=== PATIENT | female | born 1975 | race Hispanic/Latino ===

== ENCOUNTER 2016-05-14 01:40 | Emergency (ER) | payer OTHER ==
[~2016-05-14] VITALS: Ht 170.2 cm; Wt 77.1 kg
[~2016-05-14 01:40] MED LIST: ALBUTEROL 3 ML3 ML INH; ALBUTEROL SULFAT3 M1 INH; ATROVENT H0.017 MG/A PO; AUGMENTIN 875 M1 TAB PO; CEPHALEXIN500 MG PO; DEXILANT60 MG PO; FERROUS SULFAT325 M3 PO; FLU VACCINE 0.0.5 ML IM; LEVSIN0.125 M1 PO; LORAZEPAM1 MG PO; MECLIZINE HCL25 MG PO; MONTELUKAST SOD10 M1 PO; MOTRIN800 MG PO; MULTIVITAMIN1 TAB PO; NEXIUM20 MG PO; PREDNISONE50 MG PO; PROAIR HFA0.09 MG/Ac INH; PROAIR HFA0.09 MG/Ac PO; PROBIOTIC FORMU1 CAP PO; RANITIDINE HYD150 MG PO; ROBITUSSIN W/CO10 ML PO; SERTRALINE HCL50 MG PO; SYNTHROID0.025 MG PO; VALIUM2 MG PO; ZOFRAN ODT4 M1 SL
--- NOTE | 2016-05-14 01:46 | ED GENERAL ADULT ---
History of Present Illness General Chief Complaint: Dyspnea (COPD, CHF, Other) Stated Complaint: BIBA, DIFF BREATHING Source: patient, EMS Exam Limitations: no limitations Vital Signs & Intake/Output Vital Signs & Intake/Output Vital Signs Date Time Temp Pulse Resp B/P Pulse O2 O2 Flow FiO2 Ox Delivery Rate 05/14 0650 97.6 82 18 128/64 97 Room Air 05/14 0449 97.4 76 20 125/64 97 Room Air 05/14 0318 99 Room Air 05/14 0159 98.0 84 18 123/64 99 Room Air Allergies Coded Allergies: Sulfa (Sulfonamide Antibiotics) (Severe, HIVES 12/30/15) fluconazole (Severe, BODY SWELLING, RASH 12/30/15) Reconcile Medications Albuterol Sulfate 3 ML NEB 3 ML INH PRN ASTHMA (Reported) Albuterol Sulfate (Proair Hfa) 0.09 MG/Actuation CHENTE 2 PUFF INH PRN ASTHMA ( Reported) Ferrous Sulfate 325 MG (65 MG IRON) TABLET 1 TAB PO DAILY SUPPLEMENT ( Reported) Hyoscyamine (Levsin) 0.125 MG TABLET 1 TAB PO Q4 PRN ABDOMINAL SPASMS Lactobacillus Acidophilus (Probiotic Formula Capsule) 10B CELL CAPSULE 1 CAP PO DAILY SUPPLEMENT (Reported) Levothyroxine (Synthroid) 0.025 MG TAB 0.025 MG PO DAILY AC THYROID (Reported ) Lorazepam 1 MG TAB 0.5 TAB PO PRN ANXIETY (Reported) Meclizine HCl 25 MG TABLET 1 TAB PO TIDPRN PRN VERTIGO Montelukast Sodium 10 MG TABLET 1 TAB PO DAILY ALLERGIES (Reported) Multivitamin (Multiple Vitamins) 1 EACH TABLET 1 TAB PO DAILY SUPPLEMENT ( Reported) Ondansetron (Zofran Odt) 4 MG TAB.RAPDIS 1 TAB SL TID PRN NAUSEA Ranitidine Hydrochloride 150 MG TAB 1 TAB PO PRN GI (Reported) Sertraline HCl 50 MG TABLET 0.5 TAB PO DAILY ANXIETY (Reported) Triage Nurses Notes Reviewed? yes Onset: Abrupt Duration: hour(s): Timing: recent history HPI: 05/14/16 1:53 AM 41-year-old female presents to the emergency department status post chest pain and difficulty breathing and elevated heart rate. According to the patient she has a history of fast heart rate. She was told by the product test specialist that this has to do when she goes from lying to sitting suddenly. She also recently had disc surgery. The disc was replaced through an incision in her abdomen, this was approximately 6 weeks ago. She denies any other complaints. She says that the symptoms woke her up from sleep with severe chest pain difficulty breathing. Now in the emergency Department the symptoms have resolved. She said her heart rate was greater than 200. The onset of the symptoms were abrupt, the duration was just this evening, the severity was significant as her symptoms required to come to the emergency department for care. Past History Travel History Traveled to [place] past 21 day No Medical History Any Pertinent Medical History? see below for history Neurological: NONE, vertigo EENT: NONE Cardiovascular: NONE Respiratory: asthma Gastrointestinal: hIATAL HERNIA WITH SUBSEQUENT ACID REFLUX Hepatic: NONE Renal: NONE Musculoskeletal: chronic back pain Psychiatric: anxiety Endocrine: Liz's thyroiditis, hypothyroidism Blood Disorders: NONE Cancer(s): NONE [employer]/Reproductive: NONE Influenza Vaccine: 11/26/14 Surgical History Surgical History: non-contributory Psychosocial History Who do you live with Patient/Self Services at Home None What is your primary language Cambodian Family History Hx Contributory? No Review of Systems Review of Systems Constitutional: Denies: fever. EENTM: Denies: visual changes. Respiratory: Reports: short of breath. Cardiovascular: Reports: chest pain, palpitations. GI: Denies: abdominal pain. Genitourinary: Reports: no symptoms. Musculoskeletal: Reports: no symptoms. Skin: Reports: no symptoms. Neurological/Psychological: Reports: no symptoms. Hematologic/Endocrine: Reports: no symptoms. Immunologic/Allergic: Reports: no symptoms. Physical Exam Physical Exam General Appearance: well developed/nourished, alert, awake, anxious, mild distress Head: atraumatic, normal appearance Eyes: Bilateral: normal appearance, PERRL, EOMI. Ears, Nose, Throat: normal pharynx, normal ENT inspection Neck: normal inspection, supple, full range of motion Respiratory: normal breath sounds, chest non-tender, no respiratory distress Cardiovascular: regular rate/rhythm Peripheral Pulses: 4+ radial (R), 4+ radial (L) Gastrointestinal: soft, non-tender, clean abdominal cicatrix in the midline Back: normal inspection, normal range of motion Extremities: normal range of motion, no edema Neurologic/Psych: no motor/sensory deficits, awake, alert, oriented x 3 Skin: intact, normal color, warm/dry Core Measures ACS in differential dx? Yes CVA/TIA Diagnosis: No Severe Sepsis Present: No Septic Shock Present: No Progress Differential Diagnoses I considered the following diagnoses in my evaluation of the patient: [ SVT, pulmonary embolism, ventricular tachycardia, thyroid storm. I considered acute coronary syndrome - the pain occurred at rest, sharp, to completely resolve, she had a sudden elevation in her heart rate with the onset of the symptoms. she was referred to follow-up with the product test specialist for echocardiogram and Holter.] Plan of Care: Orders Procedure Date/time Status EKG 05/14 358 Active TOTAL TRIODOTHYROXINE 05/15 251 Complete HUMAN BETA HCG SCREEN 05/15 151 Complete TSH REFLEX 05/14 150 Complete FREE T4 05/14 150 Complete D-DIMER 05/14 150 Complete COMPREHENSIVE METABOLIC PANEL 05/14 150 Complete CBC WITHOUT DIFFERENTIAL 05/14 150 Complete Laboratory Tests 05/14/16251: Total Beta HCG NEGATIVE 05/14/16251: Anion Gap 7, Estimated GFR > 60, BUN/Creatinine Ratio 12.9, Glucose 104 H, Calcium 9.0, Total Bilirubin 0.2, AST 20, ALT 33, Alkaline Phosphatase 83, Total Protein 6.8, Albumin 3.8, Globulin 3.0, Albumin/Globulin Ratio 1.3, Free T4 1.34 , Total T3 1.38, TSH &T3 &Free T4 Intrp 3.360, D-Dimer 303 H, CBC w Diff NO MAN DIFF REQ, RBC 4.22, MCV 87.4, MCH 28.6, RDW 13.8, MPV 9.5, Gran % 63.7, Lymphocytes % 23.2, Monocytes % 7.2, Eosinophils % 5.3 H, Basophils % 0.6, Absolute Granulocytes 4.0, Absolute Lymphocytes 1.5, Absolute Monocytes 0.4, Absolute Eosinophils 0.3, Absolute Basophils 0, PUBS MCHC 32.7 L Initial ED EKG: NSR Prior EKG: unchanged Departure Departure Disposition: HOME OR SELF CARE Condition: Stable Clinical Impression Primary Impression: Palpitations Referrals: DELON HAYDEN MD (PCP/Family) Departure Forms: Customer Survey General Discharge Information Comments Chest x-ray results shown below PATIENT: ALLYSSA RUIZ PRESENT AGE: 41 PATIENT ACCOUNT NO: [id number] : 75 LOCATION: [facility] ORDERING PHYSICIAN: TOMMY PETERS DO SERVICE DATE: 05/14/161 EXAM TYPE: CAT - CTA CHEST-PULMONARY EMBOLISM EXAMINATION: CT ANGIOGRAM OF THE CHEST WITH AND WITHOUT CONTRAST (CT PULMONARY ANGIOGRAM FOR PE) CLINICAL INFORMATION: CP/SOB/ELEVATED DIMER COMPARISON: None TECHNIQUE: Prior to contrast administration, noncontrast localization images were obtained. Subsequently, multidetector volumetric imaging was performed from the thoracic inlet to below the diaphragms following the administration of 95 mL Optiray 320 intravenous contrast. No contrast reaction reported Sagittal, coronal, and MIP oblique sagittal reformatted images were obtained on the CT workstation, uploaded to PACS, and reviewed. Total exam dose-length product 421.7 mGy-cm FINDINGS: QUALITY OF STUDY/CONTRAST BOLUS: Satisfactory. PULMONARY ARTERIES: No central or segmental pulmonary emboli. THORACIC AORTA: No aneurysm or dissection. LUNG: No focal consolidation, nodules or masses. PLEURA: No pleural effusion or pneumothorax. MEDIASTINUM: Normal heart size. No pericardial effusion. No hilar or mediastinal lymphadenopathy. No evidence of septal bowing or right heart strain. CHEST WALL/AXILLA: No axillary or internal mammary lymphadenopathy. OSSEOUS STRUCTURES: No acute or suspicious osseous abnormality. UPPER ABDOMEN: Unremarkable. No reflux of contrast into the hepatic veins to suggest elevated right heart pressures. IMPRESSION: Normal CT of chest. VTE: negative DICTATED BY: EMILI GARZA MD DATE/TIME DICTATED:05/14/16612 ACCOUNT SUPERVISOR:ANGIE DATE/TIME TRANSCRIBED:05/14/16612 CONFIDENTIAL, DO NOT COPY WITHOUT APPROPRIATE AUTHORIZATION. <Electronically signed in Other Vendor System> SIGNED BY: EMILI GARZA MD 05/14/1662005/14/16 6:30 AM Labs unremarkable other than elevated d-dimer. CTA negative for pulmonary embolism. EKG reveals normal sinus rhythm. The patient is asymptomatic in the Emergency Department. She will be discharged and follow-up with her doctor on Sunday. She'll return to the emergency department if worse. Critical Care Note Critical Care Note Critical Care Time: non-applicable
--- NOTE | 2016-05-14 02:32 | RADIOLOGY REPORT ---
EXAMINATION: XR PORTABLE CHEST CLINICAL INFORMATION: Shortness of breath. COMPARISON: Chest x-ray 03/12/2015 TECHNIQUE: Portable AP portable view of the chest was obtained. 2:10 AM FINDINGS: Lung volume low. No significant pulmonary vascular congestion. No infiltrate or pleural effusion. No pneumothorax. The cardiac and the mediastinal contours are normal. IMPRESSION: Low inspiratory effort. No acute abnormality of the chest.
[2016-05-14 03:01] LABS: ABSOLUTE BASOPHIL COUNT 0 /CUMM (0.0-0.2); ABSOLUTE EOSINOPHIL COUNT 0.3 /CUMM (0.0-0.7); ABSOLUTE LYMPH COUNT 1.5 /CUMM (1.2-3.4); ABSOLUTE MONOCYTE COUNT 0.4 /CUMM (0.10-0.60); BASOPHIL % 0.6 % (0.0-2.0); EOSINOPHIL % 5.3 % (0-5); GRANULOCYTE % 63.7 % (42.2-75.2); HEMATOCRIT 36.9 % (37-47); MEAN CORPUSCULAR HGB 28.6 PG (27.0-31.0); MEAN CORPUSCULAR HGB CONC 32.7 G/DL (33.0-37.0); MEAN CORPUSCULAR VOLUME 87.4 FL (81.0-99.0); MEAN PLATELET VOLUME 9.5 FL (7.4-10.4); PLATELET COUNT 254 /CUMM (130-400); RBC DISTRIBUTION WIDTH 13.8 % (11.5-14.5); RED BLOOD CELL CT 4.22 /CUMM (4.20-5.40); WHITE BLOOD CELL COUNT 6.3 /CUMM (4.8-10.8)
--- NOTE | 2016-05-14 06:21 | CT SCAN REPORT ---
EXAMINATION: CT ANGIOGRAM OF THE CHEST WITH AND WITHOUT CONTRAST (CT PULMONARY ANGIOGRAM FOR PE) CLINICAL INFORMATION: CP/SOB/ELEVATED DIMER COMPARISON: None TECHNIQUE: Prior to contrast administration, noncontrast localization images were obtained. Subsequently, multidetector volumetric imaging was performed from the thoracic inlet to below the diaphragms following the administration of 95 mL Optiray 320 intravenous contrast. No contrast reaction reported Sagittal, coronal, and MIP oblique sagittal reformatted images were obtained on the CT workstation, uploaded to PACS, and reviewed. Total exam dose-length product 421.7 mGy-cm FINDINGS: QUALITY OF STUDY/CONTRAST BOLUS: Satisfactory. PULMONARY ARTERIES: No central or segmental pulmonary emboli. THORACIC AORTA: No aneurysm or dissection. LUNG: No focal consolidation, nodules or masses. PLEURA: No pleural effusion or pneumothorax. MEDIASTINUM: Normal heart size. No pericardial effusion. No hilar or mediastinal lymphadenopathy. No evidence of septal bowing or right heart strain. CHEST WALL/AXILLA: No axillary or internal mammary lymphadenopathy. OSSEOUS STRUCTURES: No acute or suspicious osseous abnormality. UPPER ABDOMEN: Unremarkable. No reflux of contrast into the hepatic veins to suggest elevated right heart pressures. IMPRESSION: Normal CT of chest. VTE: negative
[2016-05-14 06:50] VITALS: BP 128/64
== END 2016-05-14 06:52 ==
LOC: ERH 01:40
PROVIDERS: Emergency Medicine
DX: R00.2 Palpitations (principal); R07.9 Chest pain, unspecified
CPT/HCPCS: 93005; 93010

== ENCOUNTER 2016-08-05 00:06 | Emergency (ER) | payer OTHER ==
[~2016-08-05] VITALS: Ht 162.6 cm; Wt 71.7 kg
--- NOTE | 2016-08-05 00:20 | ED CARDIAC/CP/PALPITATIONS ---
History of Present Illness General Chief Complaint: Palpitations Stated Complaint: PT C/O PALPITATIONS HX OF SAME Source: patient Exam Limitations: no limitations Vital Signs & Intake/Output Vital Signs & Intake/Output Vital Signs Date Time Temp Pulse Resp B/P B/P Pulse O2 O2 Flow FiO2 Mean Ox Delivery Rate 08/05 0119 97 Room Air 08/05 109 98.4 85 18 104/59 97 Room Air Allergies Coded Allergies: Sulfa (Sulfonamide Antibiotics) (Severe, HIVES 12/30/15) fluconazole (Severe, BODY SWELLING, RASH 12/30/15) Reconcile Medications Albuterol Sulfate 3 ML NEB 3 ML INH PRN ASTHMA (Reported) Albuterol Sulfate (Proair Hfa) 0.09 MG/Actuation CHENTE 2 PUFF INH PRN ASTHMA ( Reported) Ferrous Sulfate 325 MG (65 MG IRON) TABLET 1 TAB PO DAILY SUPPLEMENT ( Reported) Hyoscyamine (Levsin) 0.125 MG TABLET 1 TAB PO Q4 PRN ABDOMINAL SPASMS Lactobacillus Acidophilus (Probiotic Formula Capsule) 10B CELL CAPSULE 1 CAP PO DAILY SUPPLEMENT (Reported) Levothyroxine (Synthroid) 0.025 MG TAB 0.025 MG PO DAILY AC THYROID (Reported ) Lorazepam 1 MG TAB 0.5 TAB PO PRN ANXIETY (Reported) Meclizine HCl 25 MG TABLET 1 TAB PO TIDPRN PRN VERTIGO Montelukast Sodium 10 MG TABLET 1 TAB PO DAILY ALLERGIES (Reported) Multivitamin (Multiple Vitamins) 1 EACH TABLET 1 TAB PO DAILY SUPPLEMENT ( Reported) Ondansetron (Zofran Odt) 4 MG TAB.RAPDIS 1 TAB SL TID PRN NAUSEA Ranitidine Hydrochloride 150 MG TAB 1 TAB PO PRN GI (Reported) Sertraline HCl 50 MG TABLET 0.5 TAB PO DAILY ANXIETY (Reported) Triage Nurses Notes Reviewed? yes Onset: Abrupt Duration: minute(s): Timing: single episode today Quality/Severity: mild Location: central Radiation: no radiation Activities at Onset: none Prior Chest Pain/Card Workup: extensive work up... "autonomic dysfunction possible" otherwise benign, workup includes holter monitor. Associated Symptoms: better with rest HPI: 41 yo woman with sudden onset of palpitations tonight. She notes that she has had these episodes before, has been worked up by Dr. Figueroa where it has been thus far unrevealing. She notes that she feels better now, has no palpitations, chest pain, shortness of breath. She is otherwise well. Past History Medical History Any Pertinent Medical History? 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 No Review of Systems Review of Systems Constitutional: Reports: no symptoms. EENTM: Reports: no symptoms. Respiratory: Reports: no symptoms. Cardiovascular: Reports: no symptoms. GI: Reports: no symptoms. Genitourinary: Reports: no symptoms. Musculoskeletal: Reports: no symptoms. Skin: Reports: no symptoms. Neurological/Psychological: Reports: no symptoms. Hematologic/Endocrine: Reports: no symptoms. Immunologic/Allergic: Reports: no symptoms. All Other Systems: Reviewed and Negative Physical Exam Physical Exam General Appearance: well developed/nourished, mild distress Head: atraumatic, normal appearance Eyes: Bilateral: normal appearance. Ears, Nose, Throat: normal pharynx, normal ENT inspection Neck: normal inspection, supple, full range of motion Respiratory: normal breath sounds, chest non-tender, no respiratory distress, quiet respiration, lungs clear Cardiovascular: regular rate/rhythm Gastrointestinal: normal bowel sounds, soft, non-tender, no organomegaly Back: normal inspection, normal range of motion Extremities: normal inspection, normal capillary refill, normal range of motion, no edema Neurologic/Psych: no motor/sensory deficits, awake, alert, oriented x 3 Skin: intact, normal color, warm/dry Core Measures ACS in differential dx? No Severe Sepsis Present: No Septic Shock Present: No Progress Differential Diagnosis: palpitations vs panic vs autonomic dysfunction vs svt vs other. Plan of Care: Orders Procedure Date/time Status TROPONIN LEVEL 08/06 19 Complete HUMAN BETA HCG SCREEN 08/06 19 Complete D-DIMER 08/06 19 Complete COMPREHENSIVE METABOLIC PANEL 08/06 19 Complete CBC WITHOUT DIFFERENTIAL 08/06 19 Complete EKG 08/059 Active Laboratory Tests 08/05/16 0047: Anion Gap 8, Estimated GFR > 60, BUN/Creatinine Ratio 18.6, Glucose 92, Calcium 9.1, Total Bilirubin 0.4, AST 28, ALT 38, Alkaline Phosphatase 85, Troponin I < 0.01, Total Protein 6.9, Albumin 4.0, Globulin 2.9, Albumin/Globulin Ratio 1.4, Total Beta HCG NEGATIVE, D-Dimer High Sensitivty < 200, CBC w Diff NO MAN DIFF REQ, RBC 4.53, MCV 87.4, MCH 28.6, RDW 13.1, MPV 9.4, Gran % 58.9, Lymphocytes % 28.6, Monocytes % 6.9, Eosinophils % 4.6, Basophils % 1.0, Absolute Granulocytes 4.7, Absolute Lymphocytes 2.3, Absolute Monocytes 0.5, Absolute Eosinophils 0.4, Absolute Basophils 0.1, PUBS MCHC 32.7 L Diagnostic Imaging: Viewed by Me: Radiology Read. Discussed w/RAD: Radiology Read. CXR Impression: no acute abnormality, no infiltrates, normal size heart, normal mediastinum Initial ED EKG: normal axis, normal intervals, normal p-waves, normal QRS complex, normal sinus rhythm Comments: PATIENT: ALLYSSA RUIZ PRESENT AGE: 41 PATIENT ACCOUNT NO: [id number] : 75 LOCATION: [facility] ORDERING PHYSICIAN: TY DELACRUZ MD SERVICE DATE: 08/05/16 EXAM TYPE: RAD - XRY-PORTABLE CHEST XRAY EXAMINATION: XR PORTABLE CHEST CLINICAL INFORMATION: Palpitations. COMPARISON: 05/14/2016 TECHNIQUE: Portable frontal view of the chest was obtained. FINDINGS: The lungs are well expanded. There is no focal consolidation, edema, or effusion. No pneumothorax. The cardiomediastinal silhouette is within normal limits. No acute osseous abnormality. IMPRESSION: No acute pulmonary findings. DICTATED BY: REJI PEDRAZA MD DATE/TIME DICTATED:08/05/16131 LEARNING DESIGNER:ANGIE DATE/TIME TRANSCRIBED:08/05/16131 CONFIDENTIAL, DO NOT COPY WITHOUT APPROPRIATE AUTHORIZATION. <Electronically signed in Other Vendor System> SIGNED BY: REJI PEDRAZA MD 08/05 Departure Departure Disposition: HOME OR SELF CARE Condition: Stable Clinical Impression Primary Impression: Palpitations Referrals: DELON HAYDEN MD (PCP/Family) Departure Forms: Customer Survey General Discharge Information Comments pt stable on the monitor for several hours... labs benign... pt has had an extensive negative workup.... Pt safe for discharge with close follow up. Critical Care Note Critical Care Note Critical Care Time: non-applicable
[2016-08-05 00:59] LABS: ABSOLUTE BASOPHIL COUNT 0.1 /CUMM (0.0-0.2); ABSOLUTE EOSINOPHIL COUNT 0.4 /CUMM (0.0-0.7); ABSOLUTE GRANULOCYTE CT 4.7 /CUMM (1.4-6.5); ABSOLUTE LYMPH COUNT 2.3 /CUMM (1.2-3.4); ABSOLUTE MONOCYTE COUNT 0.5 /CUMM (0.10-0.60); EOSINOPHIL % 4.6 % (0-5); GRANULOCYTE % 58.9 % (42.2-75.2); HEMATOCRIT 39.6 % (37-47); MEAN CORPUSCULAR HGB 28.6 PG (27.0-31.0); MEAN CORPUSCULAR HGB CONC 32.7 G/DL (33.0-37.0); MEAN CORPUSCULAR VOLUME 87.4 FL (81.0-99.0); MEAN PLATELET VOLUME 9.4 FL (7.4-10.4); PLATELET COUNT 261 /CUMM (130-400); RBC DISTRIBUTION WIDTH 13.1 % (11.5-14.5); RED BLOOD CELL CT 4.53 /CUMM (4.20-5.40); WHITE BLOOD CELL COUNT 7.9 /CUMM (4.8-10.8)
[2016-08-05 01:10] VITALS: BP 104/59
--- NOTE | 2016-08-05 01:35 | RADIOLOGY REPORT ---
EXAMINATION: XR PORTABLE CHEST CLINICAL INFORMATION: Palpitations. COMPARISON: 05/14/2016 TECHNIQUE: Portable frontal view of the chest was obtained. FINDINGS: The lungs are well expanded. There is no focal consolidation, edema, or effusion. No pneumothorax. The cardiomediastinal silhouette is within normal limits. No acute osseous abnormality. IMPRESSION: No acute pulmonary findings.
== END 2016-08-05 02:17 ==
LOC: ERH 00:06
PROVIDERS: Pediatrics
DX: R00.2 Palpitations (principal)
CPT/HCPCS: 93005; 93010

== ENCOUNTER 2017-02-28 20:30 | Emergency (ER) | payer OTHER ==
[~2017-02-28] VITALS: Ht 162.6 cm; Wt 68.0 kg
[~2017-02-28 20:30] MED LIST changes: +ALBUTEROL2.5 MG/3 M INH/SOL; +DELTASONE20 MG PO; +FISH OIL 1,0001 EAC4 PO; +MULTIPLE VITAM1 EAC2 PO; -MULTIVITAMIN1 TAB PO; +RANITIDINE HCL150 MG PO; -SYNTHROID0.025 MG PO; +SYNTHROID25 MCG PO; +VENTOLIN HFA18 GM INH; +ZOLOFT25 M1 PO
--- NOTE | 2017-02-28 21:44 | ED GI/GU/ABDOMINAL COMPLAINT ---
History of Present Illness General Chief Complaint: Female Urogenital Problems Stated Complaint: VAGINAL BLEEDING X1 MONTH Source: patient Exam Limitations: no limitations Vital Signs & Intake/Output Vital Signs & Intake/Output Vital Signs Date Time Temp Pulse Resp B/P B/P Pulse O2 O2 Flow FiO2 Mean Ox Delivery Rate 03/01 0002 Room Air 02/28 2320 56 20 103/61 97 Room Air 02/28 2224 96.6 64 18 114/82 98 Room Air 02/28 2038 96.2 71 18 125/80 99 Room Air ED Intake and Output 03/01 0000 02/28 1200 Intake Total Output Total Balance Patient 150 lb Weight Weight Estimated Measurement Method Allergies Coded Allergies: Sulfa (Sulfonamide Antibiotics) (Severe, HIVES 12/30/15) fluconazole (Severe, BODY SWELLING, RASH 12/30/15) Reconcile Medications Albuterol Sulfate (Ventolin Hfa) 90 MCG HFA.AER.AD 2 PUF INH AD PRN ASTHMA ( Reported) Albuterol Sulfate 2.5 MG/3 ML (0.083 %) VIAL.NEB 1 Vial INH/BING AD PRN ASTHMA (Reported) Ferrous Sulfate 325 MG (65 MG IRON) TABLET 1 TAB PO DAILY SUPPLEMENT ( Reported) Levothyroxine Sodium (Synthroid) 25 MCG TABLET 1 TAB PO DAILY THYROID ( Reported) Medroxyprogesterone Acetate (Provera) 10 MG TABLET 1 TAB PO DAILY DYSFUNCTIONAL UTERINE BLEEDING Montelukast Sodium 10 MG TABLET 1 TAB PO DAILY ALLERGIES (Reported) Multivitamin (Multiple Vitamins) 1 EACH TABLET 1 TAB PO DAILY SUPPLEMENT ( Reported) [place]-3 Fatty Acids/Fish Oil (Fish Oil 1,000 MG Softgel) (Unknown Strength) CAPSULE (Unknown Dose) PO DAILY SUPPLEMENT (Reported) Ranitidine (Ranitidine HCl) 150 MG TABLET 1 TAB PO BID GI (Reported) Sertraline HCl (Zoloft) 25 MG TABLET 1 TAB PO DAILY ANXIETY (Reported) Triage Note: PT TO ER C/C HEAVY VAGINAL BLEEDING X 1 MONTH. WAS SEEN BY OBGYN FOR SAME, HAD ULTRASOUND. PATIENT STATES, "THEY SAW SOMETHING AND WANT TO DO A BIOPSY". PATIENT STATES HAS BEEN CHANGING 1 PAD PER HOUR, PASSING LARGE CLOTS. APPEARS PALE, HX OF ANEMIA. COMPLAINS OF MILD WEAKNESS/DIZZINESS Triage Nurses Notes Reviewed? yes ? N Is pt currently ? No Onset: Gradual Duration: week(s): (4), constant Quality/Severity: cramping No Modifying Factors: none HPI: 41-year-old female comes into the emergency room for further evaluation of vaginal bleeding is been going on for about a month. She reports that she normally gets normal menstrual cycles. She reports that for the past month she' s had bleeding wasn't a daily basis going through multiple pads. She had an outpatient ultrasound her WIND ENERGY ENGINEER doctor and was told that there is a mass that needs to be looked into. She denies any fever vomiting. Some cramping at times. Denies any other system symptoms. (Jeff Joyner) Past History Travel History Traveled to [place] past 21 day No Medical History Any Pertinent Medical History? see below for history Neurological: vertigo EENT: NONE Cardiovascular: NONE, STATED SVT Respiratory: asthma Gastrointestinal: hIATAL HERNIA WITH SUBSEQUENT ACID REFLUX Hepatic: NONE Renal: NONE Musculoskeletal: chronic back pain Psychiatric: anxiety Endocrine: Liz's thyroiditis, hypothyroidism Blood Disorders: NONE Cancer(s): NONE POLICE JUSTICE/Reproductive: NONE Surgical History Surgical History: non-contributory Psychosocial History Who do you live with Patient/Self Services at Home None What is your primary language Macedonian Tobacco Use: Never used Family History Hx Contributory? No (Jeff Joyner) Review of Systems Review of Systems Constitutional: Reports: no symptoms. EENTM: Reports: no symptoms. Respiratory: Reports: no symptoms. Cardiovascular: Reports: no symptoms. GI: Reports: no symptoms. Genitourinary: Reports: see HPI. Musculoskeletal: Reports: no symptoms. Skin: Reports: no symptoms. Neurological/Psychological: Reports: no symptoms. Hematologic/Endocrine: Reports: no symptoms. Immunologic/Allergic: Reports: no symptoms. All Other Systems: Reviewed and Negative (Jeff Joyner) Physical Exam Physical Exam General Appearance: well developed/nourished, no apparent distress, alert, awake Head: atraumatic, normal appearance Eyes: Bilateral: normal appearance, EOMI. Ears, Nose, Throat, Mouth: hearing grossly normal, moist mucous membrane Neck: normal inspection Respiratory: no respiratory distress Cardiovascular: regular rate/rhythm Gastrointestinal: soft, non-tender Back: normal inspection Extremities: normal range of motion Neurologic/Psych: awake, alert, oriented x 3 Skin: intact, normal color Core Measures ACS in differential dx? No Sepsis Present: No Sepsis Focused Exam Completed? No (Jeff Joyner) Progress Differential Diagnosis: appendicitis, biliary colic, ovarian cyst, PUD/GERD, UTI /pyelo, UTERINE FIBROIDS, DYSFUNCTIONAL UTERINE BLEEDING Plan of Care: Orders Procedure Date/time Status COMPREHENSIVE METABOLIC PANEL 02/28 2143 Complete CBC WITHOUT DIFFERENTIAL 02/28 2143 Complete URINE 02/28 2049 Complete URINALYSIS 02/28 2049 Complete Laboratory Tests 02/28/172156: Anion Gap 9, Estimated GFR > 60, BUN/Creatinine Ratio 21.7, Glucose 89, Calcium 8.8, Total Bilirubin 0.1 L, AST 29, ALT 40, Alkaline Phosphatase 85, Total Protein 6.4, Albumin 3.6, Globulin 2.8, Albumin/Globulin Ratio 1.3 02/28/172150: CBC w Diff NO MAN DIFF REQ, RBC 3.96 L, MCV 87.4, MCH 29.4, RDW 14.0, MPV 9.4, Gran % 49.9, Lymphocytes % 31.7, Monocytes % 13.0 H, Eosinophils % 4.6, Basophils % 0.8, Absolute Granulocytes 1.9, Absolute Lymphocytes 1.2, Absolute Monocytes 0.5, Absolute Eosinophils 0.2, Absolute Basophils 0, PUBS MCHC 33.6 02/28/172051: Urinalysis LIGHT H, Urine Color YEL, Urine Clarity HAZY H, Urine pH 6.0, Ur Specific [place] 1.025, Urine Protein 30 H, Urine Ketones NEG, Urine Nitrite NEG, Urine Bilirubin NEG, Urine Urobilinogen 0.2, Ur Leukocyte Esterase NEG, Ur Microscopic SEDIMENT EXAMINED, Urine RBC >75 H, Urine WBC 5-10 H, Ur Epithelial Cells FEW, Urine Bacteria FEW H, Urine Hemoglobin LARGE H, Urine Glucose NEG, Urine Test NEGATIVE Initial ED EKG: none (Jeff Joyner) Departure Departure Disposition: HOME OR SELF CARE Condition: Stable Clinical Impression Primary Impression: Dysfunctional uterine bleeding Referrals: Hardeep Patterson MD (PCP/Family) Additional Instructions: Take medroxyprogesterone as prescribed. Follow-up with your nitroglycerin nitrator operator batch. Return if any concerns worsening symptoms. Please go over all results of today's visit with your primary care doctor. Contact your primary care doctor to let them know you were here in the emergency room. There may be nonspecific findings which may not be related to your visit today here in the emergency room but may require further evaluation and chronic monitoring by your primary care doctor. If you had a laceration today the chance of foreign body always remains. You should follow-up with your primary care doctor for recheck in 3-5 days for a wound check. If you had an x-ray done there is a chance that a fracture could have been missed on initial read and you should follow-up with your primary care doctor for repeat x-rays if symptoms persist. If your blood pressure was elevated here in the emergency room please have rechecked by jahaira primary care doctor within the next 48. If you were prescribed a narcotic here in the emergency room or any type of controlled substances you're not allowed to drive while taking this medication or operate any type of heavy machinery. Narcotics can make you feel lightheaded dizziness nausea and can cause constipation. You may need to sweet pickle maker a stool softener. Thank you for choosing [facility] emergency room. Please return to the emergency room immediately if you have any other concerns worsening of symptoms. Departure Forms: Customer Survey General Discharge Information Prescriptions: Current Visit Scripts Medroxyprogesterone Acetate (Provera) 1 TAB PO DAILY #10 TAB Comments 02/28/2017 11:51:38 PM Patient is hemodynamically stable. Patient started on progesterone. Referred to her nitroglycerin nitrator operator batch. Return if any concerns. Orthostatic blood pressures negative. She is in no apparent distress. She looks well here. (Jeff Joyner) PA/MERCHANDISING STOCK ASSOCIATE Co-Sign Statement Statement: ED Attending supervision documentation- I saw and evaluated the patient. I have also reviewed all the pertinent lab results and diagnostic results. I agree with the findings and the plan of care as documented in the PA's/MERCHANDISING STOCK ASSOCIATE's documentation. x I have reviewed the ED Record and agree with the PA's/MERCHANDISING STOCK ASSOCIATE's documentation. [] Additions or exceptions (if any) to the PAs/MERCHANDISING STOCK ASSOCIATE's note and plan are summarized below: [] (Daquan NO,Tony)
[2017-02-28 22:07] LABS: ABSOLUTE BASOPHIL COUNT 0 /CUMM (0.0-0.2); ABSOLUTE EOSINOPHIL COUNT 0.2 /CUMM (0.0-0.7); ABSOLUTE GRANULOCYTE CT 1.9 /CUMM (1.4-6.5); ABSOLUTE LYMPH COUNT 1.2 /CUMM (1.2-3.4); ABSOLUTE MONOCYTE COUNT 0.5 /CUMM (0.10-0.60); BASOPHIL % 0.8 % (0.0-2.0); EOSINOPHIL % 4.6 % (0-5); GRANULOCYTE % 49.9 % (42.2-75.2); HEMATOCRIT 34.6 % (37-47); MEAN CORPUSCULAR HGB 29.4 PG (27.0-31.0); MEAN CORPUSCULAR HGB CONC 33.6 G/DL (33.0-37.0); MEAN CORPUSCULAR VOLUME 87.4 FL (81.0-99.0); MEAN PLATELET VOLUME 9.4 FL (7.4-10.4); PLATELET COUNT 195 /CUMM (130-400); RED BLOOD CELL CT 3.96 /CUMM (4.20-5.40); WHITE BLOOD CELL COUNT 3.8 /CUMM (4.8-10.8)
[2017-02-28 23:20] VITALS: BP 103/61
[2017-02-28] MEDS ORDERED: PROVERA10 MG PO (23:42)
== END 2017-03-01 00:03 ==
LOC: ERH 20:30
PROVIDERS: Physician Assistant Medical
DX: N93.8 Other specified abnormal uterine and vaginal bleeding (principal)
CPT/HCPCS: 81001; 81025

== ENCOUNTER 2017-06-27 19:39 | Emergency (ER) | payer OTHER ==
[~2017-06-27 19:39] MED LIST changes: +PROVERA10 MG PO
[2017-06-27 20:22] LABS: ABSOLUTE BASOPHIL COUNT 0 /CUMM (0.0-0.2); ABSOLUTE EOSINOPHIL COUNT 0.3 /CUMM (0.0-0.7); ABSOLUTE GRANULOCYTE CT 4.2 /CUMM (1.4-6.5); ABSOLUTE LYMPH COUNT 1.8 /CUMM (1.2-3.4); ABSOLUTE MONOCYTE COUNT 0.6 /CUMM (0.10-0.60); BASOPHIL % 0.4 % (0.0-2.0); EOSINOPHIL % 4.8 % (0-5); GRANULOCYTE % 60.6 % (42.2-75.2); HEMATOCRIT 37.6 % (37-47); MEAN CORPUSCULAR HGB CONC 32.9 G/DL (33.0-37.0); MEAN CORPUSCULAR VOLUME 88.3 FL (81.0-99.0); MEAN PLATELET VOLUME 10.1 FL (7.4-10.4); PLATELET COUNT 251 /CUMM (130-400); RBC DISTRIBUTION WIDTH 13.8 % (11.5-14.5); RED BLOOD CELL CT 4.26 /CUMM (4.20-5.40)
--- NOTE | 2017-06-27 20:56 | ED CARDIAC/CP/PALPITATIONS ---
History of Present Illness General Chief Complaint: Chest Pain Stated Complaint: CP ON UPPER LEFT SIDE,HEAD PAIN Source: patient Exam Limitations: no limitations Vital Signs & Intake/Output Vital Signs & Intake/Output Vital Signs Date Time Temp Pulse Resp B/P B/P Pulse O2 O2 Flow FiO2 Mean Ox Delivery Rate 06/27 2133 98.0 76 20 107/59 99 Room Air 06/28 1947 96.8 85 18 110/72 98 Room Air Allergies Coded Allergies: Sulfa (Sulfonamide Antibiotics) (Severe, HIVES 12/30/15) fluconazole (Severe, BODY SWELLING, RASH 12/30/15) Reconcile Medications Albuterol Sulfate (Ventolin Hfa) 90 MCG HFA.AER.AD 2 PUF INH AD PRN ASTHMA ( Reported) Albuterol Sulfate 2.5 MG/3 ML (0.083 %) VIAL.NEB 1 Vial INH/BING AD PRN ASTHMA (Reported) Ferrous Sulfate 325 MG (65 MG IRON) TABLET 1 TAB PO DAILY SUPPLEMENT ( Reported) Levothyroxine Sodium (Synthroid) 25 MCG TABLET 1 TAB PO DAILY THYROID ( Reported) Medroxyprogesterone Acetate (Provera) 10 MG TABLET 1 TAB PO DAILY DYSFUNCTIONAL UTERINE BLEEDING Montelukast Sodium 10 MG TABLET 1 TAB PO DAILY ALLERGIES (Reported) Multivitamin (Multiple Vitamins) 1 EACH TABLET 1 TAB PO DAILY SUPPLEMENT ( Reported) Naproxen (Naprosyn) 500 MG TABLET 1 TAB PO BID PRN pain [place]-3 Fatty Acids/Fish Oil (Fish Oil 1,000 MG Softgel) (Unknown Strength) CAPSULE (Unknown Dose) PO DAILY SUPPLEMENT (Reported) Ranitidine (Ranitidine HCl) 150 MG TABLET 1 TAB PO BID GI (Reported) Sertraline HCl (Zoloft) 25 MG TABLET 1 TAB PO DAILY ANXIETY (Reported) Triage Note: PT TO TRIAGE C/O L SIDED CP ALL DAY TODAY, WORSE WITH PUSHING AND PULLING MOVEMENTS IT RADIATES TO BACK. DENIES SOB/N/V. EVAL'D BY IOANA Braden IN TRIAGE. Triage Nurses Notes Reviewed? yes Onset: Abrupt Duration: day(s): (1), constant, continues in ED Timing: single episode today Quality/Severity: moderate, sharp Location: LEFT CHEST/SHOUDLER Radiation: no radiation Activities at Onset: none Prior Chest Pain/Card Workup: no prior chest pain, no prior cardiac workup Modifying Factors: Worsens With: movement, palpation. Nitro Today/Relief: no nitro taken today Aspirin Today: no aspirin today LMP (ages 10-50): unknown : No Patient currently breastfeeds: No HPI: 42-year-old female past medical history of vertigo, chronic back pain, anxiety, Liz's thyroiditis presents for evaluation of chest pain. Patient states she first noticed this pain very early this morning and has been constant. The pain is located in the left side of her chest left lateral ribs and left upper back. Described as sharp. It is worse with movement of the left shoulder and touching the area. It is also worse with deep inspiration. There is no trauma or known sugar event. She is not having any medicine for this. She denies shortness of breath hemoptysis lower extremity edema recent surgery history of DVT nausea vomiting. She also reports that she hit her head in a car door 3 days ago and has pain to the top of her head. The pain is Better since first started there was no loss of consciousness no changes in vision or vomiting. No blood thinners. She is no personal history of heart disease. No family history of heart disease. (Darian Garces) Past History Travel History Traveled to [place] past 21 day No Medical History Any Pertinent Medical History? see below for history Neurological: vertigo EENT: NONE Cardiovascular: NONE, STATED SVT Respiratory: asthma Gastrointestinal: hIATAL HERNIA WITH SUBSEQUENT ACID REFLUX Hepatic: NONE Renal: NONE Musculoskeletal: chronic back pain Psychiatric: anxiety Endocrine: Liz's thyroiditis, hypothyroidism Blood Disorders: NONE Cancer(s): NONE FLAG DECORATOR/Reproductive: NONE Surgical History Surgical History: non-contributory Psychosocial History Who do you live with Patient/Self Services at Home None What is your primary language Bangladeshi Tobacco Use: Never used ETOH Use: denies use Family History Hx Contributory? No (Darian Garces) Review of Systems Review of Systems Constitutional: Reports: no symptoms. EENTM: Reports: no symptoms. Respiratory: Reports: no symptoms. Cardiovascular: Reports: see HPI, chest pain. GI: Reports: no symptoms. Genitourinary: Reports: no symptoms. Musculoskeletal: Reports: see HPI, back pain, muscle pain. Skin: Reports: no symptoms. Neurological/Psychological: Reports: headache. Hematologic/Endocrine: Reports: no symptoms. Immunologic/Allergic: Reports: no symptoms. All Other Systems: Reviewed and Negative (Darian Garces) Physical Exam Physical Exam General Appearance: well developed/nourished, no apparent distress, alert, awake Head: atraumatic, normal appearance Eyes: Bilateral: normal appearance, PERRL, EOMI. Ears, Nose, Throat: normal pharynx, normal ENT inspection, hearing grossly normal Neck: normal inspection, supple, full range of motion Respiratory: normal breath sounds, no respiratory distress, lungs clear, CHEST WALL TENDER PALPATION OF THE LEFT CHEST LEFT LATERAL RIBS AND LEFT UPPER BACK NO BRUISING SWELLING OR ABRASIONS Cardiovascular: regular rate/rhythm, normal peripheral pulses Peripheral Pulses: 2+ radial (R), 2+ radial (L) Gastrointestinal: soft, non-tender Back: normal inspection, normal range of motion, THORACIC PARASPINOUS MUSCLES TENDER PALPATION ON THE LEFT Extremities: normal inspection, normal range of motion, no edema Neurologic/Psych: no motor/sensory deficits, awake, alert, oriented x 3, normal gait Skin: intact, normal color, warm/dry Lymphatic: no anterior cervical sp Core Measures ACS in differential dx? No CVA/TIA Diagnosis No Sepsis Present: No Sepsis Focused Exam Completed? No (Darian Garces) Progress Differential Diagnosis: AMI, aortic dissection, atrial fibrillation, cholecystitis, CHF/pulm edema, costochondritis, musculoskeletal pain, pancreatitis, pericarditis, pneumonia, pneumothorax, pulmonary embolism, PUD/ GERD, PVCs/PACs, unstable angina Plan of Care: Orders Procedure Date/time Status Add-on Test (ER Only) 06/27 2053 Active LIPASE 06/27 2010 Complete TROPONIN LEVEL 06/28 1947 Complete HUMAN BETA HCG SCREEN 06/28 1947 Complete COMPREHENSIVE METABOLIC PANEL 06/28 1947 Complete CBC WITHOUT DIFFERENTIAL 06/28 1947 Complete EKG 06/28 1939 Active Laboratory Tests 06/27/172010: Anion Gap 10, Estimated GFR > 60, BUN/Creatinine Ratio 20.0, Glucose 95, Calcium 8.9, Total Bilirubin 0.4, AST 24, ALT 31, Alkaline Phosphatase 77, Troponin I < 0.01, Total Protein 6.6, Albumin 3.9, Globulin 2.7, Albumin/Globulin Ratio 1.4, Lipase 110, Total Beta HCG NEGATIVE, CBC w Diff NO MAN DIFF REQ, RBC 4.26, MCV 88.3, MCH 29.0, MCHC 32.9 L, RDW 13.8, MPV 10.1, Gran % 60.6, Lymphocytes % 26.0, Monocytes % 8.2, Eosinophils % 4.8, Basophils % 0.4, Absolute Granulocytes 4.2, Absolute Lymphocytes 1.8, Absolute Monocytes 0.6, Absolute Eosinophils 0.3, Absolute Basophils 0 Patient seen and evaluated. She is here reporting pain in the left chest left lateral ribs left upper back. This pain is very reproducible with range of motion of the left shoulder and palpation. EKG does not show any acute findings blood work is within normal limits. Low risk Wells negative PERC score. Chest x-ray clear. Patient was medicated with naproxen here and is feeling much better on reevaluation. Patient was instructed to rest and avoid excessive physical activity and lifting or bending. Continue naproxen as needed. Patient declines any further medications. Follow up with primary care doctor discussed return precautions detail. Case discussed with Dr. WHITTINGTON he agrees. Diagnostic Imaging: Viewed by Me: Radiology Read. Discussed w/RAD: Radiology Read. Radiology Impression: PATIENT: ALLYSSA RUIZ PRESENT AGE: 42 PATIENT ACCOUNT NO: [id number] : 75 LOCATION: [facility] ORDERING PHYSICIAN: Darian TRIPLETT SERVICE DATE: 06/27/17 EXAM TYPE: RAD - XRY- CHEST XRAY, TWO VIEWS EXAMINATION: XR CHEST CLINICAL INFORMATION: Left-sided chest pain. Pneumonia, congestive heart failure COMPARISON: 08/05/2016 TECHNIQUE : 2 views of the chest were obtained. FINDINGS: Lungs are clear. No focal consolidation or mass. Normal pulmonary vascularity. No pleural effusion or pneumothorax. Normal heart size. Convex right thoracic scoliosis. IMPRESSION: No acute pulmonary disease. DICTATED BY: Abram William MD DATE/TIME DICTATED:04/15 MORTGAGE LOAN INTERVIEWER:ANGIE DATE/TIME TRANSCRIBED:06/27/172107 CONFIDENTIAL, DO NOT COPY WITHOUT APPROPRIATE AUTHORIZATION. <Electronically signed in Other Vendor System> SIGNED BY: Abram William MD 06/27/172112 Initial ED EKG: normal sinus rhythm, no ST T wave changes (Darian Garces) Departure Departure Disposition: HOME OR SELF CARE Condition: Stable Clinical Impression Primary Impression: Chest wall pain Referrals: Hardeep Patterson MD (PCP/Family) Additional Instructions: Rest, avoid excessive physical activity. Continue to use naproxen 500 mg every 12 hours as needed for pain. Make a follow-up appointment with her primary care doctor to review all results of today's visit. Monitor symptoms return with any concerns. Follow-up with your primary care physician this week. Contact them to let them know you were here in the emergency room. Return to the emergency room at any time sooner if you have worsening of your symptoms or any other concerns. Please note that there might be incidental findings in your evaluation that are unrelated to the current emergency department visit. Please notify your primary care doctor about this emergency department visit in order to obtain and review all of the testing performed so that these incidental findings can be monitored as needed. If you were prescribed a narcotic use caution as this medication is highly addictive and may make you feel lightheaded,dizzy or drowsy. These can make you constipated. Use for breakthrough pain only. No driving, drinking alcohol or operating machinary when taking. If you had an x-ray performed, please understand that some fractures may not be seen on the initial set of x-rays. If your symptoms persist you might need a repeat set of x-rays to check for such a fracture. If you had a laceration evaluated, please understand that foreign bodies such as glass or wood may not be visible to the naked eye or on plain x-rays. If the wound becomes red, swollen, increasingly more painful or if there is any drainage from the wound, please have it reevaluated by a physician for the possibility of a retained foreign body. Departure Forms: Customer Survey General Discharge Information Prescriptions: Current Visit Scripts Naproxen (Naprosyn) 1 TAB PO BID PRN pain #30 TAB (Darian Garces) PA/TUBE SIZER AND CUTTER OPERATOR Co-Sign Statement Statement: ED Attending supervision documentation- x I saw and evaluated the patient. I have also reviewed all the pertinent lab results and diagnostic results. I agree with the findings and the plan of care as documented in the PA's/TUBE SIZER AND CUTTER OPERATOR's documentation. [] I have reviewed the ED Record and agree with the PA's/TUBE SIZER AND CUTTER OPERATOR's documentation. [] Additions or exceptions (if any) to the PAs/TUBE SIZER AND CUTTER OPERATOR's note and plan are summarized below: [] (Daquan NO,Tony) Critical Care Note Critical Care Note Critical Care Time: non-applicable (Darian Garces)
--- NOTE | 2017-06-27 21:13 | RADIOLOGY REPORT ---
EXAMINATION: XR CHEST CLINICAL INFORMATION: Left-sided chest pain. Pneumonia, congestive heart failure COMPARISON: 08/05/2016 TECHNIQUE: 2 views of the chest were obtained. FINDINGS: Lungs are clear. No focal consolidation or mass. Normal pulmonary vascularity. No pleural effusion or pneumothorax. Normal heart size. Convex right thoracic scoliosis. IMPRESSION: No acute pulmonary disease.
[2017-06-27] MEDS ORDERED: NAPROSYN500 M1 PO (21:30)
[2017-06-27 21:34] VITALS: BP 107/59
== END 2017-06-27 21:43 ==
LOC: ERH 19:39
PROVIDERS: Physician Assistant Medical
DX: R07.89 Other chest pain (principal)
CPT/HCPCS: 71046; 93005; 93010

== ENCOUNTER 2017-07-21 13:05 | Emergency (ER) | payer OTHER ==
[~2017-07-21] VITALS: Ht 162.6 cm; Wt 68.0 kg
[~2017-07-21 13:05] MED LIST changes: +NAPROSYN500 M1 PO
--- NOTE | 2017-07-21 14:38 | ED GENERAL ADULT ---
History of Present Illness General Chief Complaint: General Adult Stated Complaint: MULTIPLE COMPLAINTS Source: patient Exam Limitations: no limitations Vital Signs & Intake/Output Vital Signs & Intake/Output Vital Signs Date Time Temp Pulse Resp B/P B/P Pulse O2 O2 Flow FiO2 Mean Ox Delivery Rate 07/21 2012 98.2 63 18 118/67 99 Room Air 07/21 1752 97.7 62 18 104/59 98 Room Air Room Air 07/21 1451 Room Air 07/21 1320 97.9 86 18 121/79 97 Room Air Allergies Coded Allergies: Sulfa (Sulfonamide Antibiotics) (Severe, HIVES 12/30/15) fluconazole (Severe, BODY SWELLING, RASH 12/30/15) Reconcile Medications Albuterol Sulfate (Ventolin Hfa) 90 MCG HFA.AER.AD 2 PUF INH AD PRN ASTHMA ( Reported) Albuterol Sulfate 2.5 MG/3 ML (0.083 %) VIAL.NEB 1 Vial INH/BING AD PRN ASTHMA (Reported) Ferrous Sulfate 325 MG (65 MG IRON) TABLET 1 TAB PO DAILY SUPPLEMENT ( Reported) Levothyroxine Sodium (Synthroid) 25 MCG TABLET 1 TAB PO DAILY THYROID ( Reported) Medroxyprogesterone Acetate (Provera) 10 MG TABLET 1 TAB PO DAILY DYSFUNCTIONAL UTERINE BLEEDING Montelukast Sodium 10 MG TABLET 1 TAB PO DAILY ALLERGIES (Reported) Multivitamin (Multiple Vitamins) 1 EACH TABLET 1 TAB PO DAILY SUPPLEMENT ( Reported) Naproxen (Naprosyn) 500 MG TABLET 1 TAB PO BID PRN pain Eldena-3 Fatty Acids/Fish Oil (Fish Oil 1,000 MG Softgel) (Unknown Strength) CAPSULE (Unknown Dose) PO DAILY SUPPLEMENT (Reported) Ranitidine (Ranitidine HCl) 150 MG TABLET 1 TAB PO BID GI (Reported) Sertraline HCl (Zoloft) 25 MG TABLET 1 TAB PO DAILY ANXIETY (Reported) Triage Note: PT TO ER C/C 1 WEEK HX OF DIZZINESS, C/P, NAUSEA, HEAT INTOLERANCE, LEFT FLANK PAIN, DELAYED MENSTRUAL PERIOD. LMP 05/31/2017. DENIES CHEST PAIN AT THIS TIME, STATES HEAT MAKES THE CHEST PAIN WORSE. Triage Nurses Notes Reviewed? yes Onset: Abrupt Duration: week(s): Timing: recent history : No Patient currently breastfeeds: No HPI: 07/21/17 3:09 PM 42-year-old female presents to the emergency department with multiple complaints. She says that she's had blurry vision and left upper extremity weakness and chest pain and has not felt well for the past several days. The symptoms are intermittent. She says she is really not felt well for weeks. She says that she's been intolerant to heat. She says that she takes salt tablets and has been diagnosed with Mast cell deactivation syndrome. She takes cromolyn sulfate. She says she also has a history of Liz's thyroiditis and asthma. (Sagar Morales DO) Past History Travel History Traveled to [place] past 21 day No Medical History Any Pertinent Medical History? 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 No (Sagar Morales DO) Review of Systems Review of Systems Constitutional: Denies: fever. EENTM: Reports: blurred vision. Respiratory: Reports: short of breath. Cardiovascular: Reports: chest pain. GI: Reports: abdominal pain. Genitourinary: Reports: see HPI. Musculoskeletal: Reports: back pain. Skin: Denies: rash. Neurological/Psychological: Reports: anxiety. Hematologic/Endocrine: Reports: see HPI. (Sagar Morales DO) Physical Exam Physical Exam General Appearance: well developed/nourished, alert, awake, anxious, mild distress Head: atraumatic, normal appearance Eyes: Bilateral: normal appearance, PERRL, EOMI. Ears, Nose, Throat: normal pharynx, normal ENT inspection Neck: normal inspection, supple, full range of motion Respiratory: normal breath sounds, chest non-tender Cardiovascular: regular rate/rhythm Peripheral Pulses: 4+ radial (R), 4+ radial (L) Gastrointestinal: soft, non-tender Back: normal range of motion Extremities: normal inspection, normal range of motion, no edema Neurologic/Psych: no motor/sensory deficits, awake, alert, oriented x 3 Skin: intact, normal color, warm/dry Core Measures ACS in differential dx? No CVA/TIA Diagnosis: No Sepsis Present: No Sepsis Focused Exam Completed? No (Sagar Morales DO) Progress Differential Diagnoses I considered the following diagnoses in my evaluation of the patient: [Viral syndrome, Lyme disease, lupus, CVA, acute coronary syndrome, pulmonary embolism, hypothyroidism, electrolyte derangement, diabetes,] Plan of Care: Orders Procedure Date/time Status TROPONIN LEVEL 07/21 184 Complete EKG 07/21 1843 Active Add-on Test (ER Only) 07/21 1824 Active D-DIMER 07/21 1601 Complete Add-on Test (ER Only) 07/21 1517 Active THYROID STIMULATING HORMONE 07/21 1449 Complete THYROXINE 07/21 1449 Complete LYME TITRE 07/21 1449 Active TROPONIN LEVEL 07/21 1322 Complete HUMAN BETA HCG SCREEN 07/21 1322 Complete COMPREHENSIVE METABOLIC PANEL 07/21 1322 Complete CBC WITHOUT DIFFERENTIAL 07/21 1322 Complete EKG 07/21 1321 Active Laboratory Tests 07/21/17 1843: Troponin I < 0.01 07/21/17 184: D-Dimer High Sensitivty < 200 07/21/17 1449: Anion Gap 10, Estimated GFR > 60, BUN/Creatinine Ratio 16.7, Glucose 83, Calcium 8.8, Total Bilirubin 0.4, AST 20, ALT 28, Alkaline Phosphatase 74, Troponin I < 0.01, Total Protein 6.6, Albumin 3.7, Globulin 2.9, Albumin/Globulin Ratio 1.3, TSH 1.130, Thyroxine (T4) 7.6, Total Beta HCG NEGATIVE, CBC w Diff NO MAN DIFF REQ, RBC 4.47, MCV 87.5, MCH 29.5, MCHC 33.8, RDW 13.6, MPV 10.1, Gran % 62.3, Lymphocytes % 22.9, Monocytes % 8.4, Eosinophils % 5.7 H, Basophils % 0.7, Absolute Granulocytes 3.7, Absolute Lymphocytes 1.3, Absolute Monocytes 0.5, Absolute Eosinophils 0.3, Absolute Basophils 0, Lyme Disease Antibody Pending Initial ED EKG: NSR Prior EKG: unchanged (Sagar Morales DO) Departure Departure Condition: Stable Clinical Impression Primary Impression: Polymyalgia Secondary Impressions: Chest pain Referrals: Hardeep Patterson MD (PCP/Family) Departure Forms: Customer Survey General Discharge Information Comments 07/21/17 Patient is pain-free. Repeat troponin is pending. D-dimer was also ordered and repeat EKG. The patient will be signed out to Dr. Willams at 7 PM assuming these are negative she can be discharged and follow-up with her doctor this week. (Sagar Morales DO) Departure Disposition: HOME OR SELF CARE Additional Instructions: FOLLOW UP WITH DR. PATTERSON RETURN FOR ANY CONCERNS (Imer NO,Asaf Hernandez) Critical Care Note Critical Care Note Critical Care Time: non-applicable (Sagar Morales DO)
[2017-07-21 15:11] LABS: ABSOLUTE BASOPHIL COUNT 0 /CUMM (0.0-0.2); ABSOLUTE EOSINOPHIL COUNT 0.3 /CUMM (0.0-0.7); ABSOLUTE GRANULOCYTE CT 3.7 /CUMM (1.4-6.5); ABSOLUTE LYMPH COUNT 1.3 /CUMM (1.2-3.4); ABSOLUTE MONOCYTE COUNT 0.5 /CUMM (0.10-0.60); BASOPHIL % 0.7 % (0.0-2.0); EOSINOPHIL % 5.7 % (0-5); GRANULOCYTE % 62.3 % (42.2-75.2); HEMATOCRIT 39.1 % (37-47); MEAN CORPUSCULAR HGB 29.5 PG (27.0-31.0); MEAN CORPUSCULAR HGB CONC 33.8 G/DL (33.0-37.0); MEAN CORPUSCULAR VOLUME 87.5 FL (81.0-99.0); MEAN PLATELET VOLUME 10.1 FL (7.4-10.4); PLATELET COUNT 233 /CUMM (130-400); RBC DISTRIBUTION WIDTH 13.6 % (11.5-14.5); RED BLOOD CELL CT 4.47 /CUMM (4.20-5.40); WHITE BLOOD CELL COUNT 5.9 /CUMM (4.8-10.8)
--- NOTE | 2017-07-21 16:12 | CT SCAN REPORT ---
EXAMINATION: CT HEAD WITHOUT CONTRAST CLINICAL INFORMATION: Blurred vision, left arm numbness COMPARISON: 07/18/2015 TECHNIQUE: Contiguous axial imaging was performed from the skull base to vertex without intravenous administration of contrast. DLP: 562.07 mGy-cm FINDINGS: There is no evidence of acute intracranial hemorrhage or territorial infarction. No abnormal mass effect or midline shift is seen. Parker to white matter differentiation is well preserved. No extra-axial fluid collections are identified. The ventricles are normal in size. There is no abnormal attenuation within the brain parenchyma. The osseous structures and soft tissues are normal. The mastoid air cells and visualized portions of the paranasal sinuses are well aerated. IMPRESSION: No acute intracranial pathology.
--- NOTE | 2017-07-21 17:21 | ULTRASOUND REPORT ---
EXAMINATION: US RETROPERITONEAL COMPLETE (RENAL) CLINICAL INFORMATION: Left flank pain.. COMPARISON: None TECHNIQUE: Real-time imaging of the kidneys and bladder. FINDINGS: RIGHT KIDNEY: 10.5 x 3.9 x 4.6 cm (SAG x AP x TRV). The kidney is normal in size, contour, and echogenicity. Renal cortical thickness is normal. No calculi or focal parenchymal lesions. No hydronephrosis. LEFT KIDNEY: 10.1 x 6.1 x 4.0 cm (SAG x AP x TRV). The kidney is normal in size, contour, and echogenicity. Renal cortical thickness is normal. No calculi or focal parenchymal lesions. No hydronephrosis. BLADDER: Partially distended. Bilateral ureteral jets are demonstrated. Prevoid bladder volume is 94.8 mL. Postvoid bladder volume is 0 mL. IMPRESSION: Sonographically unremarkable kidneys and grossly unremarkable urinary bladder.
[2017-07-21 20:13] VITALS: BP 118/67
== END 2017-07-21 20:31 ==
LOC: ERH 13:05
PROVIDERS: Physician Assistant Medical
DX: M35.3 Polymyalgia rheumatica (principal); R07.9 Chest pain, unspecified; R53.1 Weakness
CPT/HCPCS: 86618; 76775; 93005; 93010